=== PATIENT | male | born 2000 ===

== ENCOUNTER 2022-01-27 16:04 | Emergency (ER) | payer BC, SELFPAY ==
[2022-01-27 16:15] VITALS: BP 156/85; PULSE 91; RESP 16; TEMP 37.2; O2SAT 97
--- NOTE | 2022-01-27 16:34 | ED.URI ---
HPI - URI/Sore Throat General Chief Complaint: Upper Respiratory Infection Stated Complaint: hard to swallow Time Seen by Provider: 01/27/22 16:30 Source: patient, RN notes reviewed and old records reviewed History of Present Illness HPI Narrative: 21-year-old male presents to [facility] care with complaints of cough, sore throat,upper chest tightness with cough and deep breathing. Patient reports that she he has taken Benadryl for his symptoms. Patient reports no fevers chills or sweats, no body aches has had COVID vaccinations. Patient reports that it is hard to swallow and painful, rates his discomfort 4/10. Patient reports past history of pharyngitis and bronchitis. Patient denies any feelings of dyspnea, no tachypnea noted with respirations even and nonlabored. MD elicited complaint: cough, sore throat and nasal congestion Treatments prior to arrival: other (Benadryl) Related Data Home Medications Medication Instructions Recorded Confirmed buspirone 30 mg tablet 1 tablet PO BID 01/27/22 01/27/22 dextroamphetamine-amphetamine ER 1 cap PO DAILY 01/27/22 01/27/22 20 mg 24hr capsule,extend release lamotrigine 25 mg tablet 1 tablet PO BID 01/27/22 01/27/22 Allergies Allergy/AdvReac Type Severity Reaction Status Date / Time Penicillins Allergy Unknown Unknown Verified 01/27/22 16:45 Review of Systems Review of Systems: CONSTITUTIONAL: Denies fever, chills, or sweats. EYES: Denies visual changes, redness, or discharge. ENT: Positive for rhinorrhea, congestion, sore throat, no otalgia. CARDIOVASCULAR: Reports some upper chest tightness with cough and deep breathing, no palpitations, or edema. RESPIRATORY: Positive for cough denies dyspnea. GASTROINTESTINAL: Denies abdominal pain, nausea, vomiting, or diarrhea. GENITOURINARY: Denies dysuria or hematuria. SKIN: Denies rash or itching. MUSCULOSKELETAL: Chronic thoracic back pain, joint pain, or myalgia. NEUROLOGIC: Denies headache, numbness, or weakness. PSYCHIATRIC: Positive for history of anxiety or depression. [facility] Past Medical History Medical History ADD (attention deficit disorder) without hyperactivity Anxiety and depression Bipolar 1 disorder Bronchitis Pharyngitis Family History Family History Grandparent Family history of type 2 diabetes mellitus Social History Social History (Updated 01/29/22 @ 11:29 by Sheron Proctor NP) Smoking status: Never smoker Alcohol intake: never Substance use: never Living arrangements: with family Gender identity (if verbalized by the patient): Male Comments At time of signature, agree with nursing past medical, surgical, social and family history. There is no relevant family history pertinent to the presenting complaint Exam Narrative: GENERAL: Well-appearing, well-nourished, obese and in no acute distress. HEAD: Normocephalic, atraumatic. EYES: PERRLA and EOMI. ENT: Nares red with clear rhinorrhea no epistaxis. Mucous membranes moist. TMs normal with good light reflex, throat red with no lesions or exudates no tonsillar swelling, postnasal drainage noted NECK: Supple. No lymphadenopathy CHEST: Clear to auscultation. No respiratory distress. No tachypnea with SPO2 97% on room HEART: Regular rate and rhythm. No murmur heard. Normal peripheral pulses. ABDOMEN: Soft, nontender, nondistended, normal active bowel sounds. EXTREMITIES: Normal range of motion. No edema. SKIN: Warm, dry, no rash. NEURO: No focal deficits. Alert and oriented x3. Course Course Level of Care: Express Care Visit Vital Signs Vital signs: Vital Signs Temperature 37.2 C 01/27/22 16:15 Pulse Rate 91 01/27/22 16:15 Respiratory Rate 16 01/27/22 16:15 Blood Pressure 156/85 H 01/27/22 16:15 Pulse Oximetry 97 01/27/22 16:15 Oxygen Delivery Room Air 01/27/22 16:15 Temperature 37.2 C 01/27/22 16:15 Puls
== END 2022-01-27 16:55 | disposition home or self-care (01) ==
PROVIDERS: Emergency Provider Registered Nurse; PCP Family Medicine
DX: J06.9 Acute upper respiratory infection, unspecified (principal); J02.9 Acute pharyngitis, unspecified; F98.8 Other specified behavioral and emotional disorders with onset usually occurring in childhood and adolescence; F41.9 Anxiety disorder, unspecified; F32.A Depression, unspecified
CPT/HCPCS: 99213; G0463